=== PATIENT | male | born 1995 | race Native Hawaiian/Other Pacific Islander ===

== ENCOUNTER 2022-01-15 21:47 | Emergency (ER) | payer OTHER ==
[~2022-01-15] VITALS: Ht 193 cm; Wt 90.7 kg
[2022-01-15 23:22] LABS: PLATELET COUNT 205 K/uL (142-355)
[2022-01-15 23:32] LABS: POTASSIUM 3.6 mmol/L (3.6-5.2)
[2022-01-16 01:04] VITALS: BP 123/80; TEMP 99.8
== END 2022-01-16 01:10 | disposition home or self-care (01) ==
LOC: ED 21:47 → EDBD 21:47 → ED 01-16 01:10
PROVIDERS: Emergency Medicine
DX: R55 Syncope and collapse (principal)
CPT/HCPCS: 36415; 80053; 80307; 81000; 84484; 85027; 85610; 93005; 99283

== ENCOUNTER 2023-01-01 20:59 | Emergency (ER) | payer OTHER ==
[~2023-01-01] VITALS: Ht 182.9 cm; Wt 119.3 kg
[2023-01-01 21:35] VITALS: TEMP 98.4
[2023-01-01 22:30] VITALS: BP 136/68
== END 2023-01-01 22:30 | disposition home or self-care (01) ==
LOC: ED 20:59
DX: S66.514A Strain of intrinsic muscle, fascia and tendon of right ring finger at wrist and hand level, initial encounter (principal); S60.041A Contusion of right ring finger without damage to nail, initial encounter; Y35.811A Legal intervention involving manhandling, law enforcement official injured, initial encounter; Y92.148 Other place in prison as the place of occurrence of the external cause
CPT/HCPCS: 99282